=== PATIENT | female | born 1975 | race Caucasian/White ===

== ENCOUNTER → 2016-08-06 | Outpatient (CLI) | payer MEDICAID ==
[~2016-08-06] MED LIST: LISI-170 PO
== END | disposition home or self-care (01) ==
LOC: CFH 08:50
PROVIDERS: ATTEND Nurse Practitioner
DX: Z12.31 Encounter for screening mammogram for malignant neoplasm of breast (principal)
CPT/HCPCS: G0202

== ENCOUNTER 2016-11-25 12:45 | Emergency (ER) | payer MEDICAID ==
[~2016-11-25] VITALS: Ht 170.2 cm; Wt 90.0 kg
[2016-11-25] MEDS ORDERED: ALBUTEROL SULFATE 2.5 MG/3 ML NPPB ONE (13:30)
[2016-11-25 13:35] LABS: HEMATOCRIT 47.1 % (34.6-47.8); HEMOGLOBIN 15.8 g/dL (11.7-16.4); WHITE BLOOD COUNT 6.9 x10^3/uL (3.4-10)
[2016-11-25 13:46] LABS: BLOOD UREA NITROGEN 8 mg/dL (7-18)
[2016-11-25] MEDS ORDERED: ALBUTEROL SULFATE 2.5 MG/3 ML ONE (13:51)
[2016-11-25 14:10] VITALS: BP 123/86
== END 2016-11-25 16:26 | disposition home or self-care (01) ==
LOC: ED 15:10
DX: J20.9 Acute bronchitis, unspecified (principal); I10 Essential (primary) hypertension
CPT/HCPCS: 36415; 71020; 80048; 85025; 94640; 99285; J7512; J7613